=== PATIENT | female | born 2000 | race Hispanic/Latino ===

== ENCOUNTER 2024-03-07 20:04 | Emergency (ER) | payer BC ==
[~2024-03-07] VITALS: Ht 149.9 cm; Wt 68.0 kg
[2024-03-07] MEDS ORDERED: DOXYCYCLINE HYCLATE TABLET 100 MG TAB ONE (21:06)
[2024-03-07] MEDS ORDERED: IBUPROFEN 600 MG TAB ONE (21:06)
[2024-03-07] MEDS ORDERED: ONDANSETRON HCL 4 MG ORAL DISINTEGRATING TAB ONE (21:06)
[2024-03-07] MEDS ORDERED: HYDROCODONE/APAP 7.5MG-325MG 1 EA TAB ONE (21:07)
[2024-03-07] MEDS: IBUPROFEN 600 MG TAB PO STA (21:11)
[2024-03-07] MEDS: HYDROCODONE/APAP 7.5MG-325MG 1 EA TAB PO PRN (21:11)
[2024-03-07] MEDS: DOXYCYCLINE HYCLATE TABLET 100 MG TAB PO ONE (21:11)
[2024-03-07] MEDS: ONDANSETRON HCL 4 MG ORAL DISINTEGRATING TAB PO ONE (21:11)
[2024-03-07 22:37] VITALS: PULSE 83; RESP 16; TEMP 98.9
[2024-03-07] MEDS ORDERED: DOXYCYCLINE HY100 MG PO (22:59)
[2024-03-07] MEDS ORDERED: ONDANSETRON ODT4 MG SL (22:59)
[2024-03-07] MEDS ORDERED: HYDROCODON-ACE1 EA11 PO (22:59)
[2024-03-07 23:13] VITALS: BP 110/68; PULSE 82; RESP 17; TEMP 98.8; O2SAT 98
== END 2024-03-07 23:10 | disposition home or self-care (01) ==
LOC: ER 20:15
DX: R50.9 Fever, unspecified (principal); L05.91 Pilonidal cyst without abscess; F17.210 Nicotine dependence, cigarettes, uncomplicated
CPT/HCPCS: 99283; Q0162